=== PATIENT | female | born 1985 | race Caucasian/White ===

== ENCOUNTER → 2019-02-19 17:22 | Outpatient (CLI) | payer OTHER, SELFPAY | DX: Z23 Encounter for immunization (principal) | CPT/HCPCS: 90471; 90686 ==

== ENCOUNTER → 2019-09-04 10:03 | Outpatient (CLI) | payer OTHER, SELFPAY ==
[2019-09-04 11:54] LABS: Add Manual Diff / Slide Review NO; Basophils Absolute Auto 0 /uL (0-100); Basophils Percent Auto 0.3 % (0-2); Eosinophils Absolute Auto 100 /uL (0-450); Eosinophils Percent Auto 1.1 % (2-4); Hematocrit 44.5 % (36-46); Hemoglobin 15.2 g/dL (12.0-16.0); Lymphocytes Absolute Auto 1300 /uL (1100-4500); Lymphocytes Percent Auto 18.4 % (25-40); Mean Corpuscular HGB Conc 34.1 % (30-36); Mean Corpuscular Hemoglobin 30.7 PG (26-34); Monocytes Absolute Auto 400 /uL (0-900); Monocytes Percent Auto 6.4 % (3-14); Neutrophils Absolute Auto 5000 /uL (1500-7000); Neutrophils Percent Auto 73.8 % (50-75); Platelet Count 164 X10^3/uL (150-400); Red Blood Cell Count 4.95 X10^6/uL (4.0-5.2); Red Cell Distribution Width 13.5 % (11.6-14.8); White Blood Cell Count 6.8 X10^3/uL (4.5-11.0)
[2019-09-04 12:18] LABS: Alanine Aminotransferase 24 IU/L (<35); Albumin 5.1 g/dL (3.5-5.0); Albumin Globulin Ratio 1.6 (1.0-2.8); Alkaline Phosphatase 56 U/L (38-126); Aspartate Aminotransferase 32 IU/L (14-36); BUN Creatinine Ratio 17.6 (6-22); Bilirubin Total 0.7 mg/dL (0.2-1.3); Blood Urea Nitrogen 13 mg/dL (7-17); Calcium 9.8 mg/dL (8.4-10.2); Carbon Dioxide 27 mmol/L (22-32); Chloride 103 mmol/L (98-107); Estimated Glomerular Filt Rate > 60.0 mL/min (>60); Globulin 3.2 g/dL (1.7-4.1); Glucose 103 mg/dL (70-100); HEMOLYSIS < 15 (0-50); Potassium 3.7 mmol/L (3.4-5.1); Sodium 139 mmol/L (137-145); Total Protein 8.3 g/dL (6.3-8.2)
== END ==
PROVIDERS: PCP Nurse Practitioner Family; Referring Provider Nurse Practitioner Family; Visit Provider Nurse Practitioner Family
DX: K92.2 Gastrointestinal hemorrhage, unspecified (principal)
CPT/HCPCS: 36415; 80053; 85025

== ENCOUNTER → 2019-09-11 08:43 | Outpatient (CLI) | payer OTHER, SELFPAY ==
--- NOTE | 2019-09-11 08:45 | DI.US.S_ITS ---
ULTRASOUND OF RIGHT BREAST: 09/11/2019 CLINICAL: Palpable right breast lump. Comparison is made to exam dated: 09/11/2019 [facility]. Color flow and real-time ultrasound of the right breast were performed on the areas of interest. Barrett scale images of the real-time examination were reviewed. There is a 1.5 cm x 0.8 cm x 1.5 cm oval mass in the right breast at 11 o'clock posterior depth. This oval mass is hypoechoic. There is an associated biopsy clip. IMPRESSION: INCOMPLETE: NEEDS ADDITIONAL IMAGING EVALUATION The 1.5 cm x 0.8 cm x 1.5 cm oval mass in the right breast is likely consistent with a fibroadenoma and has been previously biopsied. However, prior comparisons are not available at this time. Comparison to prior exams is recommended. If this mass has increased in size from prior comparison, biopsy will be recommended. This exam was interpreted at Station ID: [id number]. Electronically Signed By: Shaina Nath M.D. lk/:09/11/2019 10:34:17 letter sent: Additional Imaging Needed Ultrasound BI-RADS: 0 Indeterminate
--- NOTE | 2019-09-11 08:45 | DI.MG.S_ITS ---
BILATERAL DIGITAL DIAGNOSTIC MAMMOGRAM 3D/2D: 09/11/2019 CLINICAL: Right breast lump. No prior exams were available for comparison. The tissue of both breasts is extremely dense, which lowers the sensitivity of mammography. There is a biopsy clip in the right breast at 11 o'clock. No significant masses, calcifications, or other findings are seen in either breast. IMPRESSION: INCOMPLETE: NEEDS ADDITIONAL IMAGING EVALUATION There is no mammographic abnormality seen in the right breast to correspond with the palpable abnormality, however, targeted ultrasound of the right breast is recommended and will be performed immediately following this exam. This exam was interpreted at Station ID: [id number]. NOTE: For mammograms, a report in lay terms will be sent to the patient. Approximately 15% of breast malignancies will not be visualized mammographically. In the management of a palpable breast mass, a negative mammogram must not discourage biopsy of a clinically suspicious lesion. Electronically Signed By: Shaina Nath M.D. lk/:09/11/2019 09:23:54 ACR BI-RADS Category 0: Incomplete [id number]
== END ==
PROVIDERS: PCP Nurse Practitioner Family; Referring Provider Nurse Practitioner Family; Visit Provider Nurse Practitioner Family
DX: R92.8 Other abnormal and inconclusive findings on diagnostic imaging of breast (principal); N63.11 Unspecified lump in the right breast, upper outer quadrant
CPT/HCPCS: 76642; 77066; G0279

== ENCOUNTER → 2020-02-11 09:12 | Outpatient (CLI) | payer OTHER, SELFPAY ==
[2020-02-12 14:35] LABS: COVID19 Sendout Not Detected (Not Detect)
== END ==
PROVIDERS: PCP Nurse Practitioner Family; Visit Provider Nurse Practitioner
DX: Z11.59 Encounter for screening for other viral diseases (principal)
CPT/HCPCS: 87635

== ENCOUNTER → 2020-02-23 15:36 | Outpatient (CLI) | payer OTHER, SELFPAY | PROVIDERS: PCP Nurse Practitioner Family; Referring Provider Internal Medicine; Visit Provider Internal Medicine | DX: Z23 Encounter for immunization (principal) | CPT/HCPCS: 90471; 90686 ==

== ENCOUNTER 2020-06-08 16:35 | Emergency (ER) | payer OTHER, SELFPAY ==
[2020-06-08 16:49] VITALS: BP 140/84; PULSE 68; RESP 16; TEMP 36.8; O2SAT 98; BMI 20.9
--- NOTE | 2020-06-08 17:03 | DI.CT.S_ITS ---
PROCEDURE: CT HEAD/BRAIN WO CON INDICATIONS: left arm and face numbness since 0900 TECHNIQUE: Noncontrast 4.5 mm thick angled axial sections acquired from the foramen magnum to the vertex, with coronal and sagittal reformats. For radiation dose reduction, the following was used: automated exposure control, adjustment of mA and/or kV according to patient size. COMPARISON: None. FINDINGS: Image quality: Excellent. CSF spaces: Basal cisterns are patent. No extra-axial fluid collections. Ventricles are normal in size and shape. Brain: No midline shift. No intracranial masses or hemorrhage. Barrett-white matter interface is normal. Skull and face: Calvarium and visualized facial bones are intact, without suspicious lesions. Sinuses: Visualized sinuses and mastoids are clear. IMPRESSION: Unremarkable intracranial study, without an imaging explanation found for the patient's presenting symptoms. If it would be helpful for clinical management decision making, please consider a dedicated brain MRI for further evaluation (assuming that there is no contraindication). Dictated by: Isma Stein M.D. on 06/08/2020 at 16:19 Approved by: Isma Stein M.D. on 06/08/2020 at 16:20
[2020-06-08 17:59] VITALS: BP 138/89; PULSE 69; RESP 14; O2SAT 99
[2020-06-08 18:03] LABS: Add Manual Diff / Slide Review NO; Basophils Absolute Auto 0 /uL (0-100); Basophils Percent Auto 0.5 % (0-2); Eosinophils Absolute Auto 100 /uL (0-450); Eosinophils Percent Auto 1.9 % (2-4); Hematocrit 42.8 % (36-46); Hemoglobin 14.4 g/dL (12.0-16.0); Lymphocytes Absolute Auto 1800 /uL (1100-4500); Lymphocytes Percent Auto 29.2 % (25-40); Mean Corpuscular HGB Conc 33.7 % (30-36); Mean Corpuscular Hemoglobin 29.8 PG (26-34); Mean Corpuscular Volume 88.6 fL (80-100); Monocytes Absolute Auto 300 /uL (0-900); Monocytes Percent Auto 5.6 % (3-14); Neutrophils Absolute Auto 3900 /uL (1500-7000); Neutrophils Percent Auto 62.8 % (50-75); Platelet Count 165 X10^3/uL (150-400); Red Blood Cell Count 4.83 X10^6/uL (4.0-5.2); Red Cell Distribution Width 13.3 % (11.6-14.8); White Blood Cell Count 6.2 X10^3/uL (4.5-11.0)
[2020-06-08 18:11] LABS: Alanine Aminotransferase 21 IU/L (<35); Albumin 4.6 g/dL (3.5-5.0); Albumin Globulin Ratio 1.7 (1.0-2.8); Alkaline Phosphatase 44 U/L (38-126); Aspartate Aminotransferase 27 IU/L (14-36); BUN Creatinine Ratio 21.3 (6-22); Bilirubin Total 0.2 mg/dL (0.2-1.3); Blood Urea Nitrogen 16 mg/dL (7-17); Calcium 9.5 mg/dL (8.4-10.2); Carbon Dioxide 34 mmol/L (22-32); Chloride 103 mmol/L (98-107); Estimated Glomerular Filt Rate > 60.0 mL/min (>60); Globulin 2.7 g/dL (1.7-4.1); Glucose 109 mg/dL (70-100); HEMOLYSIS < 15 (0-50); Potassium 3.5 mmol/L (3.4-5.1); Sodium 140 mmol/L (137-145); Total Protein 7.3 g/dL (6.3-8.2)
--- NOTE | 2020-06-08 18:45 | ED_ITS ---
HPI - Neuro Symptoms/Deficit General Chief Complaint: Neuro Symptoms/Deficit Stated Complaint: left side face, left arm to hand tingling Time Seen by Provider: 06/08/20 17:58 Source: patient Mode of arrival: Ambulatory Limitations: no limitations History of Present Illness HPI Narrative: Patient is a 34-year-old otherwise healthy female here for evaluation of tingling to her left arm and also the left side of her face. She did receive the COVID-19 vaccine in her left arm approximately 4 days ago. Had a headache a couple days ago but none today. She woke up this morning with what she describes as tingling circumferentially in her left upper extremity and then as the day went on noticed that she was having tingling on the left side of her face. The symptoms have been consistent since she woke this morning. No balance issues. No lower extremity issues. No right upper extremity issues. Has never had anything like this in the past. No rashes. On Anticoagulants: No Related Data Home Medications Medication Instructions Recorded Confirmed cetirizine 10 mg tablet 10 mg PO DAILY 09/04/19 09/04/19 levonorgestrel 20 mcg/24 hours (6 INTRAUTERINE 09/04/19 09/04/19 yrs) 52 mg intrauterine device Previous Rx's Medication Instructions Recorded prednisone 20 mg PO DAILY 7 Days #7 tab 06/08/20 Allergies Allergy/AdvReac Type Severity Reaction Status Date / Time No Known Drug Allergies Allergy Verified 06/08/20 16:58 Review of Systems Constitutional Constitutional: Denies fever(s), Reports headache(s) and Denies weakness Eyes Eyes: Denies change in vision and Denies loss of vision ENT Ears, Nose, Mouth, and Throat: Denies vertigo, Denies dizziness, Reports he adache(s), Denies disequilibrium and Denies sore throat Cardiovascular Cardiovascular: Denies chest pain and Denies dyspnea Respiratory Respiratory: Denies dyspnea Gastrointestinal Gastrointestinal: Denies abdominal pain, Denies nausea and Denies vomiting Musculoskeletal Musculoskeletal: Denies numbness and Reports tingling Integumentary/Breasts Skin/Breast: Denies rash Neurologic Neurologic: Denies abnormal speech, Denies confusion, Denies vertigo, Denies dizziness, Reports headache(s), Denies localized weakness, Denies loss of vision, Denies numbness, Reports tingling, Denies disequilibrium and Denies weakness Psychiatric Psychiatric: Denies confusion Hematologic/Lymphatic On Anticoagulants: No Allergic/Immunologic Allergic/Immunologic: Denies urticaria Patient History Medical History Abnormal Pap smear of cervix (~2009) Allergies (~2001) Bulimia Chicken pox (~1999) Cholecystitis GI bleed (10/2018) Irregular menstrual cycle (~2003) Lump of right breast (01/2016) Family History (Updated 09/02/19 @ 20:20 by Janine Alcaraz) Grandfather History of heart disease Hyperlipidemia Hypertension Grandmother Diabetes mellitus History of heart disease Grandfather History of heart disease Hypertension Social History Smoking Status: Never smoker second hand exposure: No alcohol intake: current (a glass of wine 4x/week) substance use type: does not use Smoking Status: Never smoker alcohol intake frequency: a few times a week Substance Use Type: does not use Exam Initial Vital Signs Initial Vital Signs: Vital Signs Temperature 98.2 F 06/08/20 16:49 Pulse Rate 68 06/08/20 16:49 Respiratory Rate 16 06/08/20 16:49 Blood Pressure 140/84 06/08/20 16:49 Pulse Oximetry 98 06/08/20 16:49 Const General: cooperative, healthy appearing, comfortable and well developed Limitations: mental status not altered HENMT Head: normal to inspection and normocephalic Ears: external ears normal Nose: external nose normal Face and sinus: normal facial exam, face symmetric, no ecchymosis and no erythema Mouth: oral mucosae normal Eyes General: appearance normal, both eyes and all related structures Resp Effort & Inspection: normal respiratory effort Cardio Rate: regular rate GI Inspection: non-distended Skin Lesions: no lesions Rashes: no rashes Neuro General: patient alert, patient awake and patient oriented x3 Cranial Nerves: tongue midline Cognition: normal cognition Speech: speech normal Gait: normal gait Motor: muscle tone normal throughout Other: Patient with subjective decreased sensation to the left side of her face. Otherwise her cranial nerves unremarkable. Also subjective decreased sensation circumferentially down her left upper extremity. Motor is 5/5 bilateral upper lower extremity. Executive Receptionist strength equal bilaterally. Extrem General: capillary refill normal Psych Appearance: grossly normal and well kempt Scores GCS [place] coma scale eye opening: Spontaneous Abigail coma scale verbal response: Orientated [place] coma scale motor response: Obey commands [place] coma scale total score: 15 Course Orders Ordered: ED Orders 06/08/20 17:03 CT head/brain wo con Stat 06/08/20 17:33 Complete Blood Count AUTO DIFF Stat Comprehensive Metabolic Panel Stat Vital Signs Vital signs: Vital Signs - 8 hr 06/08/20 17:59 06/08/20 19:03 Pulse Rate 69 64 Respiratory Rate 14 12 Blood Pressure 138/89 139/83 Pulse Oximetry 99 99 MDM - Neuro Symptoms/Deficit Lab Data Attestation: I reviewed the patient's lab results. Result diagrams: 06/08/20 17:33 06/08/20 17:33 Labs: Lab Results 06/08/20 06/08/20 Range/Units 17:33 17:33 WBC 6.2 (4.5-11.0) X10^3/uL RBC 4.83 (4.0-5.2) X10^6/uL Hgb 14.4 (12.0-16.0) g/dL Hct 42.8 (36-46) % MCV 88.6 (80-100) fL MCH 29.8 (26-34) PG MCHC 33.7 (30-36) % RDW 13.3 (11.6-14.8) % Plt Count 165 (150-400) X10^3/uL Neut % (Auto) 62.8 (50-75) % Lymph % (Auto) 29.2 (25-40) % Island % (Auto) 5.6 (3-14) % Eos % (Auto) 1.9 L (2-4) % Baso % (Auto) 0.5 (0-2) % Neut # (Auto) 3900 (0075-6099) /uL Lymph # (Auto) 1800 (4216-2293) /uL Island # (Auto) 300 (0-900) /uL Eos # (Auto) 100 (0-450) /uL Baso # (Auto) 0 (0-100) /uL Sodium 140 (137-145) mmol/L Potassium 3.5 (3.4-5.1) mmol/L Chloride 103 (98-107) mmol/L Carbon Dioxide 34 H (22-32) mmol/L BUN 16 (7-17) mg/dL Creatinine 0.75 (0.52-1.04) mg/dL Estimated GFR > 60.0 (>60) mL/min BUN/Creatinine Ratio 21.3 (6-22) Glucose 109 H (70-100) mg/dL Calcium 9.5 (8.4-10.2) mg/dL Total Bilirubin 0.2 (0.2-1.3) mg/dL AST 27 (14-36) IU/L ALT 21 (<35) IU/L Alkaline Phosphatase 44 (38-126) U/L Total Protein 7.3 (6.3-8.2) g/dL Albumin 4.6 (3.5-5.0) g/dL Globulin 2.7 (1.7-4.1) g/dL Albumin/Globulin Ratio 1.7 (1.0-2.8) Imaging Data CT scan - head: Radiologist's Impression: [address] [id number] Scan ReportSigned Patient: Kiah Eric R#: [id number]: 1985Acct:[id number]/Sex: 34 / FDate of Service: 06/08/20Loc: EDAccession Number: [id number] Procedure: CT head/brain wo con Ordering Provider: Africa Lares D.O. PROCEDURE: CT HEAD/BRAIN WO CON INDICATIONS: left arm and face numbness since 0900 TECHNIQUE: Noncontrast 4.5 mm thick angled axial sections acquired from the foramen magnum to the vertex, with coronal and sagittal reformats. For radiation dose reduction, the following was used: automated exposure control, adjustment of mA and/or kV according to patient size. COMPARISON: None. FINDINGS: Image quality: Excellent. CSF spaces: Basal cisterns are patent. No extra-axial fluid collections. Ventricles are normal in size and shape. Brain: No midline shift. No intracranial masses or hemorrhage. Barrett-white matter interface is normal. Skull and face: Calvarium and visualized facial bones are intact, without suspicious lesions. Sinuses: Visualized sinuses and mastoids are clear. IMPRESSION: Unremarkable intracranial study, without an imaging explanation found for the patient's presenting symptoms. If it would be helpful for clinical management decision making, please consider a dedicated brain MRI for further evaluation (assuming that there is no contraindication). Dictated by: Isma Stein M.D. on 06/08/2020 at 16:19 Approved by: Isma Stein M.D. on 06/08/2020 at 16:20 [facility] Narrative Medical decision making narrative: Patient has consistent symptoms since she woke this morning. Her head CT is unremarkable. Patient has subjective decreased sensation to the left side of her face to light touch and circumferentially her left upper extremity compared to the right. Her strength is equal upper lower extremities. She has no sensory deficits in her lower extremities. She has no rash on her exam. Considered etiologies such as CVA/TIA however I feel this is unlikely given her age and risk factors presentation. Also considered other etiologies such as shingles/Fenton's palsy however she has no rash and her symptoms do seem to involve her left upper extremity doses much is involves the left side of her face and feel this makes multiple Z unlikely. She has had no trauma. Unsure if this is related to the COVID-19 vaccine that she received 4 days ago. Low suspicion for Guillain- [place]. Given the fact that it is circumferential to her left upper extremity feel this is less likely cervical radiculopathy has does not fall all 1 particular nerve root distribution. Patient does state that her family has history of ?autoimmune ?issues. I am unsure the exact etiology of her symptoms however I feel that she could be safely discharged home to see if her symptoms i mprove or worsen over the next 24-48 hours. She was given return precautions. Will start on steroids for the next couple days to see if this improves her symptoms. She expressed understanding and agreement. Discharge Plan Departure Patient Disposition: Home Clinical Impression: Facial paresthesia, Arm paresthesia, left Instructions: DI for Numbness/Tingling Activity Restrictions/Additional Instructions: I do recommend that you take the prednisone like we discussed. Is electronically transmitted to safely. Contact your primary provider for a follow-up especially if your symptoms are not improving. Return to the emergency department for any new or worsening symptoms Prescriptions: New prednisone 20 mg tablet 20 mg PO DAILY 7 Days Qty: 7 RF: 0 No Action Mirena 20 mcg/24 hours (5 yrs) 52 mg intrauterine device intrauterine RF: 0 cetirizine [Zyrtec] 10 mg tablet 10 mg PO DAILY RF: 0 Referrals: Matthew Gandhi ARNP [Primary Care Provider] -
[2020-06-08 19:03] VITALS: BP 139/83; PULSE 64; RESP 12; O2SAT 99
== END 2020-06-08 19:04 | disposition home or self-care (01) ==
PROVIDERS: Emergency Medicine; Emergency Provider Emergency Medicine; PCP Nurse Practitioner Family
DX: R20.2 Paresthesia of skin (principal); R51.9 Headache, unspecified
CPT/HCPCS: 36415; 70450; 80053; 85025; 99283; 99284

== ENCOUNTER → 2020-08-09 14:24 | Outpatient (CLI) | payer OTHER, SELFPAY ==
--- NOTE | 2020-08-09 14:39 | DI.RAD.S_ITS ---
PROCEDURE: XR CERVICAL SPINE 2V OR 3V INDICATIONS: facial numbness and tingling. Left sided affected. TECHNIQUE: 3 view(s) of the cervical spine were acquired. COMPARISON: None. FINDINGS: Bones: No fractures or dislocations to the T1 level. The lateral masses of C1 appear intact on the odontoid view. No suspicious bony lesions. Loss of lordosis which could be related to muscle spasm, rigidity or simply positional. Soft tissues: No prevertebral soft tissue swelling. IMPRESSION: Loss of lordosis; otherwise normal C-spine. Dictated by: Nito [facility] Interpreted: Santy Pedraza MD on 08/09/2020 at 17:38 Approved by: Santy Pedraza M.D. on 08/10/2020 at 15:24
[2020-08-09 15:29] LABS: Add Manual Diff / Slide Review NO; Basophils Absolute Auto 0 /uL (0-100); Basophils Percent Auto 0.4 % (0-2); Eosinophils Absolute Auto 100 /uL (0-450); Eosinophils Percent Auto 1.7 % (2-4); Hematocrit 41.8 % (36-46); Hemoglobin 14.1 g/dL (12.0-16.0); Lymphocytes Absolute Auto 1600 /uL (1100-4500); Lymphocytes Percent Auto 24.7 % (25-40); Mean Corpuscular HGB Conc 33.8 % (30-36); Mean Corpuscular Hemoglobin 29.9 PG (26-34); Mean Corpuscular Volume 88.4 fL (80-100); Monocytes Absolute Auto 300 /uL (0-900); Monocytes Percent Auto 4.6 % (3-14); Neutrophils Absolute Auto 4400 /uL (1500-7000); Neutrophils Percent Auto 68.6 % (50-75); Platelet Count 169 X10^3/uL (150-400); Red Blood Cell Count 4.73 X10^6/uL (4.0-5.2); White Blood Cell Count 6.4 X10^3/uL (4.5-11.0)
[2020-08-09 15:48] LABS: Erythrocyte Sedimentation Rate 1 MM/HR (0-20)
[2020-08-09 15:50] LABS: Alanine Aminotransferase 24 IU/L (<35); Albumin 4.9 g/dL (3.5-5.0); Albumin Globulin Ratio 1.8 (1.0-2.8); Alkaline Phosphatase 50 U/L (38-126); Aspartate Aminotransferase 31 IU/L (14-36); BUN Creatinine Ratio 23.3 (6-22); Bilirubin Total 0.3 mg/dL (0.2-1.3); Blood Urea Nitrogen 17 mg/dL (7-17); Calcium 9.8 mg/dL (8.4-10.2); Carbon Dioxide 27 mmol/L (22-32); Chloride 102 mmol/L (98-107); Estimated Glomerular Filt Rate > 60.0 mL/min (>60); Globulin 2.8 g/dL (1.7-4.1); Glucose 102 mg/dL (70-100); HEMOLYSIS < 15 (0-50); Potassium 3.5 mmol/L (3.4-5.1); Sodium 139 mmol/L (137-145); Total Protein 7.7 g/dL (6.3-8.2)
[2020-08-09 16:00] LABS: Rheumatoid Factor < 8.6 IU/mL (<12.0)
[2020-08-11 15:12] LABS: ANA Screen, IFA Negative (.)
== END ==
PROVIDERS: PCP Nurse Practitioner Family; Referring Provider Family Medicine; Visit Provider Family Medicine
DX: R20.2 Paresthesia of skin (principal); R20.0 Anesthesia of skin; G51.0 Bell's palsy; M79.609 Pain in unspecified limb; Z82.61 Family history of arthritis
CPT/HCPCS: 36415; 72040; 80053; 85025; 85651; 86038; 86430

== ENCOUNTER → 2020-08-18 16:09 | Outpatient (CLI) | payer OTHER, SELFPAY ==
--- NOTE | 2020-08-18 16:10 | DI.MRI.S_ITS ---
PROCEDURE: MR HEAD/BRAIN WO/W CON INDICATIONS: Persistent Fenton's palsy like symptoms for 6 months TECHNIQUE: Noncontrast sagittal T1 spin echo, axial T2 fast spin echo, axial FLAIR, axial gradient echo, axial diffusion and ADC through the brain. Axial/sagittal/coronal 3-D CISS, thin-slice axial T1 spin echo with fat saturation through the skull base. After the administration of contrast, axial and coronal thin-slice T1 spin echo with fat saturation through the skull base, axial T1 spin echo with fat saturation through the brain. COMPARISON: [facility], CT, CT HEAD/BRAIN WO CON, 06/08/2020, 17:03. FINDINGS: Image quality: Excellent. Cranial nerves: In this patient with this given history, scrutiny is given to courses of the facial nerves, including within the visualized portions of the parotid glands. No masses or abnormal enhancement can be seen within these regions. No masses or abnormal enhancement can be seen within the internal auditory canals or the cerebellopontine angle cisterns. CSF spaces: Ventricles are normal in size and shape. No extra-axial fluid collections. Basal cisterns are patent. Brain: No intracranial bleeds or mass effects. No abnormal intracranial enhancement. Diffusion weighted images show no acute ischemic insults. Barrett-white matter interface is intact. Brainstem is normal. Normal intravascular flow voids are present. Skull and face: Calvarial marrow signal is normal. Orbits appear normal. Sinuses: Sinuses and mastoids appear clear. IMPRESSION: No imaging explanation is found for this patient's presenting symptoms. No masses or abnormal enhancement can be seen. Dictated by: Isma Stein M.D. on 08/18/2020 at 16:32 Approved by: Isma Stein M.D. on 08/18/2020 at 16:34
== END ==
PROVIDERS: PCP Nurse Practitioner Family; Referring Provider Family Medicine; Visit Provider Family Medicine
DX: G51.0 Bell's palsy (principal)
CPT/HCPCS: 70553; A9579

== ENCOUNTER → 2021-02-16 | Outpatient (CLI) | payer OTHER, SELFPAY | PROVIDERS: PCP Nurse Practitioner Family; Referring Provider Internal Medicine; Visit Provider Internal Medicine | DX: Z23 Encounter for immunization (principal) | CPT/HCPCS: 90471; 90686 ==

== ENCOUNTER → 2022-01-03 13:45 | Outpatient (CLI) | payer OTHER, SELFPAY ==
--- NOTE | 2022-01-03 13:47 | DI.US.S_ITS ---
PROCEDURE: US PELVIC COMPLETE INDICATIONS: RECURRENT LOWER ABDOMINAL PAIN TECHNIQUE: Real-time scanning was performed of the pelvic organs, with image documentation. Additional endovaginal scanning was necessary due to incomplete visualization of the adnexal and endometrial structures by transabdominal scanning. COMPARISON: None. FINDINGS: Uterus: Uterus is retroverted and normal in size at 7.6 x 5.2 x 3.7 cm. The myometrium is homogeneous. The endometrium measures 2.6 mm combined thickness. Small amount of complex endometrial fluid is present and IUD is in expected central position. Ovaries: Ovaries are normal bilaterally measuring 3.2 x 2.1 x 1.7 cm on the right and 3.9 x 1.8 x 2.3 cm on the left. Less than 12 subcentimeter follicular cysts bilaterally. Other: No pathologic free abdominal or pelvic fluid. IMPRESSION: 1. Small amount of complex endometrial fluid and intrauterine device is in expected position. 2. Normal ovaries. We strive to produce accurate, complete, and clear reports of imaging services. To assist us in improving patient care, this report was composed using standard report templates and voice recognition software. Therefore, it may contain abnormal punctuation, insertions and/or omissions. Occasional wrong-word or sound-alike substitutions may occur. Though we review the report and make efforts to correct it, we do recommend that the report be read carefully in proper context to recognize any text inaccuracies. Dictated by: Nito SCHWAB Interpreted: Carlos Perkins MD on 01/03/2022 at 15:37 Transcribed by: CHASTITY on 01/03/2022 at 15:38 Approved by: Carlos Perkins M.D. on 01/03/2022 at 18:33
== END ==
PROVIDERS: PCP Registered Nurse Diabetes Educator; Referring Provider Registered Nurse Diabetes Educator; Visit Provider Registered Nurse Diabetes Educator
DX: R10.30 Lower abdominal pain, unspecified (principal); Z97.5 Presence of (intrauterine) contraceptive device
CPT/HCPCS: 76830; 76856

== ENCOUNTER → 2022-02-07 09:00 | Outpatient (CLI) | payer OTHER, SELFPAY | PROVIDERS: PCP Registered Nurse Diabetes Educator; Referring Provider Internal Medicine; Visit Provider Internal Medicine | DX: Z23 Encounter for immunization (principal) | CPT/HCPCS: 90471; 90686 ==

== ENCOUNTER → 2022-02-26 14:56 | Outpatient (CLI) | payer OTHER, SELFPAY ==
[2022-02-28 15:16] LABS: QuantiFERON Mitogen Value >10.00 IU/mL (.); QuantiFERON Nil Value 0.02 IU/mL (.); QuantiFERON TB Gold Plus Negative (Negative); QuantiFERON TB1 Ag Value 0.01 IU/mL (.); QuantiFERON TB2 Ag Value 0.03 IU/mL (.)
== END ==
PROVIDERS: PCP Registered Nurse Diabetes Educator; Referring Provider Registered Nurse Diabetes Educator; Visit Provider Registered Nurse Diabetes Educator
DX: Z11.1 Encounter for screening for respiratory tuberculosis (principal)
CPT/HCPCS: 36415; 86480

== ENCOUNTER → 2023-04-11 08:58 | Outpatient (CLI) | payer OTHER, SELFPAY | PROVIDERS: PCP Registered Nurse Diabetes Educator; Referring Provider Family Medicine; Visit Provider Family Medicine | DX: Z23 Encounter for immunization (principal) | CPT/HCPCS: 90471; 90686 ==